=== PATIENT | male | born 1965 | race Native Hawaiian/Other Pacific Islander ===

== ENCOUNTER 2021-11-13 17:45 | Outpatient (CLI) | payer OTHER ==
[2021-11-13 18:00] LABS: PLATELET COUNT 181 K/uL (142-355)
[2021-11-13 18:18] LABS: POTASSIUM 4.3 mmol/L (3.6-5.2)
== END 2021-11-13 19:38 | disposition home or self-care (01) ==
LOC: EDSTATUS 17:45 → LAB 17:45
DX: T84.63XD Infection and inflammatory reaction due to internal fixation device of spine, subsequent encounter (principal); Z79.2 Long term (current) use of antibiotics; Z45.2 Encounter for adjustment and management of vascular access device; Z47.89 Encounter for other orthopedic aftercare; E11.9 Type 2 diabetes mellitus without complications; I10 Essential (primary) hypertension; N40.0 Benign prostatic hyperplasia without lower urinary tract symptoms; E78.49 Other hyperlipidemia; Z79.84 Long term (current) use of oral hypoglycemic drugs; Z79.4 Long term (current) use of insulin
CPT/HCPCS: 80048; 85027

== ENCOUNTER 2021-11-20 13:15 | Outpatient (CLI) | payer OTHER ==
[2021-11-20 13:56] LABS: PLATELET COUNT 176 K/uL (142-355)
== END 2021-11-20 18:55 | disposition home or self-care (01) ==
LOC: LAB 13:15
PROVIDERS: ATTEND Physical Medicine & Rehabilitation
DX: T84.63XD Infection and inflammatory reaction due to internal fixation device of spine, subsequent encounter (principal); Z79.2 Long term (current) use of antibiotics; Z45.2 Encounter for adjustment and management of vascular access device; Z47.89 Encounter for other orthopedic aftercare; E11.9 Type 2 diabetes mellitus without complications; I10 Essential (primary) hypertension; N40.0 Benign prostatic hyperplasia without lower urinary tract symptoms; E78.49 Other hyperlipidemia; Z79.84 Long term (current) use of oral hypoglycemic drugs; Z79.4 Long term (current) use of insulin
CPT/HCPCS: 80053; 85027

== ENCOUNTER 2021-11-27 14:19 | Outpatient (CLI) | payer OTHER ==
[2021-11-27 14:37] LABS: PLATELET COUNT 166 K/uL (142-355)
[2021-11-27 14:40] LABS: POTASSIUM 4.2 mmol/L (3.6-5.2)
== END 2021-11-27 19:52 | disposition home or self-care (01) ==
LOC: LAB 14:19
PROVIDERS: ATTEND Physical Medicine & Rehabilitation
DX: T84.63XD Infection and inflammatory reaction due to internal fixation device of spine, subsequent encounter (principal); Z79.2 Long term (current) use of antibiotics; Z45.2 Encounter for adjustment and management of vascular access device; Z47.89 Encounter for other orthopedic aftercare; E11.9 Type 2 diabetes mellitus without complications; I10 Essential (primary) hypertension; N40.0 Benign prostatic hyperplasia without lower urinary tract symptoms; E78.49 Other hyperlipidemia; Z79.84 Long term (current) use of oral hypoglycemic drugs; Z79.4 Long term (current) use of insulin
CPT/HCPCS: 80048; 85027

== ENCOUNTER 2021-12-06 22:16 | Outpatient (CLI) | payer OTHER ==
[2021-12-06 22:45] LABS: PLATELET COUNT 190 K/uL (142-355)
[2021-12-07 07:40] LABS: POTASSIUM 3.6 mmol/L (3.6-5.2)
== END 2021-12-06 22:25 | disposition home or self-care (01) ==
LOC: LAB 22:16
PROVIDERS: ATTEND Physical Medicine & Rehabilitation
DX: T84.63XD Infection and inflammatory reaction due to internal fixation device of spine, subsequent encounter (principal); Z79.2 Long term (current) use of antibiotics; Z45.2 Encounter for adjustment and management of vascular access device; Z47.89 Encounter for other orthopedic aftercare; E11.9 Type 2 diabetes mellitus without complications; I10 Essential (primary) hypertension; N40.0 Benign prostatic hyperplasia without lower urinary tract symptoms; E78.49 Other hyperlipidemia; Z79.84 Long term (current) use of oral hypoglycemic drugs; Z79.4 Long term (current) use of insulin
CPT/HCPCS: 80048; 85027

== ENCOUNTER 2021-12-15 13:35 | Outpatient (CLI) | payer OTHER ==
[2021-12-15 14:47] LABS: PLATELET COUNT 158 K/uL (142-355)
[2021-12-15 14:54] LABS: POTASSIUM 3.8 mmol/L (3.6-5.2)
== END 2021-12-15 22:24 | disposition home or self-care (01) ==
LOC: LAB 13:35
PROVIDERS: ATTEND Physical Medicine & Rehabilitation
DX: Z47.89 Encounter for other orthopedic aftercare (principal); Z79.899 Other long term (current) drug therapy
CPT/HCPCS: 80048; 85027